=== PATIENT | male | born 1960 | race Caucasian/White ===

== ENCOUNTER 2023-10-28 08:13 | Day surgery (SDC) | payer MEDICARE, SELFPAY ==
[2023-10-12 08:21] VITALS: BMI 25.2
[2023-10-12 09:04] LABS: % Basophils 0.7 % (0-2); % Eosinophils 4.2 % (0-6); % Immature Granulocytes 0.4 % (0-0.5); % Lymphocytes 27.3 % (20.5-51.1); % Monocytes 7.4 % (1.7-9.3); Absolute Basophils 0.1 10^3/uL (0-0.2); Absolute Eosinophils 0.3 10^3/uL (0-0.7); Absolute Monocytes 0.5 10^3/uL (0.1-0.6); Absolute Neutrophils 4.4 10^3/uL (1.4-6.5); Hematocrit 38.6 % (39.0-52.0); Mean Corp Hgb Conc. 33.7 g/dL (33.0-37.0); Mean Corpuscular Hgb 31.3 pg (27.0-31.0); Mean Corpuscular Volume 92.8 fL (80.0-94.0); Mean Platelet Volume 10.3 fL (7.4-10.4); Nucleated Red Blood Cells % 0 % (-); Platelet Count 219 10^3/uL (130-400); Red Blood Cell Count 4.16 10^6/uL (4.70-6.10); Red Cell Dist. Width 13.1 % (11.5-14.5); White Blood Cell Count 7.3 10^3/uL (4.8-10.8)
[2023-10-12 09:11] LABS: INR 0.96; PT 12.6 Sec (11.4-14.6)
[2023-10-12 09:22] LABS: ALT (SGPT) 25 U/L (0-50); AST (SGOT) 23 U/L (17-59); Albumin 3.7 g/dl (3.5-5.0); Alkaline Phosphatase 73 U/L (38-126); Blood Urea Nitrogen 25 mg/dl (9-20); Calcium 9.5 mg/dl (8.4-10.2); Carbon Dioxide 28 mmol/L (22-30); Chloride 105 mmol/L (98-107); Estimated Creatinine Clearance 86 ml/min; Glucose 110 mg/dl (70-99); Magnesium 1.9 mg/dl (1.6-2.3); Potassium 4.7 mmol/L (3.5-5.1); Sodium 139 mmol/L (135-145); Total Bilirubin 0.3 mg/dl (0.2-1.3); Total Protein 6.1 g/dl (6.3-8.2); eGFR > 60.00
[2023-10-28] VITALS (18 sets, daily range): BP systolic 95–143; BP diastolic 47–83
[2023-10-28] MEDS: NSS 500 IV (09:05)
[2023-10-28 13:51] LABS: ACT-LR - POC 263 Seconds (116-155)
[2023-10-28 14:05] LABS: ACT-LR - POC 297 Seconds (116-155)
[2023-10-28 14:21] LABS: ACT-LR - POC 331 Seconds (116-155)
[2023-10-28 15:24] LABS: ACT-LR - POC 364 Seconds (116-155)
[2023-10-28 15:31] LABS: ACT-LR - POC > 397 Seconds (116-155)
[2023-10-28 15:53] LABS: ACT-LR - POC 152 Seconds (116-155)
[2023-10-28] MEDS: TYLENOL 650 MG PO (16:56)
--- NOTE | 2023-10-28 17:59 | PTCARENOTE ---
Received patient from shift lab technician. Dressing dry and intact left groin. Fem stop in place right groin, pressure at 20 and decreased to 10. HOB elevated after 2 hours of bedrest post hemostasis. Pedal pulses palpable bilaterally. Monitoring VS, SR on the
monitor. Oriented to room and plan of care, call rivers in reach.
--- NOTE | 2023-10-28 18:32 | ITS.CL.ABL ---
Grade School Teacher - Ablation
Ablation
Procedure Report:
Primary Readiness Paraprofessional: Willi Ni MD
Procedure Date: 10/28/2023
Patient History:
The patient is a pleasant 63-year-old male with a past medical history significant for CAD status post PCI, inferolateral NE, ischemic cardiomyopathy with a EF of 40%, hypertension, hyperlipidemia, history of tobacco, 23% PVC burden with 22 beat
NSVT on recent event monitor.
See H&P for complete history.
Indication:
Symptomatic PVCs
High PVC burden
Cardiomyopathy
Procedure
X PVC/VT Ablation procedure (46632) -- includes 3D mapping
X+LA/CS pacing (08150)
X+Intracardiac ultrasound (28197)
[ ]+Transseptal (66777)
[ ]+IV drug (98229)
[ ]+Other Arrhythmia (17337)
Method
NPO status confirmed. Grounding pad applied. Defibrillator pads applied. Continuous surface ECG, pulse oximetry, and blood pressure were monitored. Procedure was performed under MAC anesthesia, with anesthesia services.
Both groins were clipped, prepped with Chloraprep, and draped in sterile fashion. Time out was called. Local anesthesia administered. The left femoral veins were accessed for catheter placement, using ultrasound guidance, micro-puncture needle/wire,
and modified seldinger technique. 2 venous sheaths were placed. Arterial access was obtained using ultrasound guidance and a 5fr short sheath was placed (upsized to 9fr long braided sheath).
The following catheters were used:
X Tacticath SE (D/F-curve) ablation catheter
X Viewflex 9Fr ICE catheter
X Inquiry decapolar 6Fr diagnostic catheter
[ ] 6Fr quadrapolar diagnostic catheter
X HD Grid multielectrode mapping catheter
Heparin was given with arterial access. Heparin was given to achieve and maintain a target ACT of 300-400 seconds.
ICE and 3D mapping was performed to identify relevant cardiac structures. A careful 3D map was created to assess for regions of low-voltage and abnormal electrogram signals (late potentials, fractionation). See synopsis for details.
Catheter-based radiofrequency ablation was performed using a [employer] power generator. Target power was 30-50 Perez. See synopsis for details
At procedure conclusion, ICE was used to rule out pericardial effusion. Hemostasis was obtained with figure of 8 suture for venous groin site and manual pressure for the arterial site. Protamine was used for reversal.
Estimated Blood Loss
5-10 mL
Complications
None
Procedure Synopsis:
Following access as noted above, LV endocardium was mapped with HD grid catheter. PVC morphology RBRI transition at V6 with RSR V1 indicative of anterolateral papillary muscle origin. Using high-density mapping, PVC localized to the anterolateral
papillary muscle. HD grid was exchanged for ablation catheter and at site of earliest activation, EGM demonstrated a fractionated signal, -24 ms pre-QRS with a QS unipolar pattern. Incidental catheter ectopy at this location demonstrated at 94%
match by electroanatomic mapping. RF was delivered in this location using ICE guidance with careful monitoring of temperature, impedance. During ablation, sustained ventricular escape was noted and terminated with RF. After ablation, no clinical PVC
returned following waiting period. Given patient's LVEF 40%, cardiomyopathy, and NSVT on monitor, EPS was performed to induce VT by MUSTT trial indication. The decapolar catheter was placed along the RV septum for EPS/VT induction. Monomorphic VT at
TCL 240 ms with RBRI V4 transition likely arising near scar in LV successfully pace terminated at 220 ms RVP. Catheters were removed. No changes on post-ICE imaging compared to Pre-ICE imaging, no evidence of effusion. Protamine was used for
reversal. Sheaths were removed with ACT < 170. Figure of 8 closure for venous sheaths and manual pressure for arterial sheath site.
Fluoroscopy: 4.2 minutes; 8.93 mGy; DAP 1.03
RF Time: 5min 13s
Contrast used: 0 cc
Baseline Intervals:
Rhythm: SR, PVCs
AZ: 170 ms
QRS: 111 ms
QT: 408 ms
QTc: 475 ms
A-A: 737 ms
R-R: 737 ms
AVWB: 330 ms
AERP: 600/250 ms
Post-Procedure Intervals:
AZ: 170 ms
QRS: 117 ms
QT: 383 ms
QTc: 482 ms
A-A: 632 ms
R-R: 632 ms
Recommendations
1. Bedrest with straight-leg precautions as ordered
2. Admit for monitoring - tentative ICD implantation Sunday 10/29
3. Resume home medications as indicated
4. Ok to resume anticoagulation or antiplatelet medications tonight if patient and groin sites stable
5. Plan for follow-up in office in 4-6 weeks
Ankit Loco DO
Clinical Cardiac Sweet Pickled Fruit Maker
cc: Willi Ni MD
[2023-10-28] MEDS: COREG 6.25 MG PO (20:46)
[2023-10-28] MEDS: LIPITOR 10 MG PO (20:46)
[2023-10-28] MEDS: SEROQUEL 300 MG PO (21:14)
[2023-10-28] MEDS: NSS IV (22:34)
--- NOTE | 2023-10-28 23:58 | PTCARENOTE ---
Pt rec'd at change of shift awake,alert on CBR. Left femoral figure 8 sutures removed at 8pm. Pt oob at 8:30 pm tolerated well. B/L groin sites remain intact. Sinus with pac's noted on telemetry.
[2023-10-29 04:56] VITALS: BP 119/65
[2023-10-29 05:31] LABS: Hematocrit 33.5 % (39.0-52.0); Hemoglobin 11.9 g/dL (13.0-18.0); Mean Corp Hgb Conc. 35.5 g/dL (33.0-37.0); Mean Corpuscular Hgb 32.1 pg (27.0-31.0); Mean Corpuscular Volume 90.3 fL (80.0-94.0); Mean Platelet Volume 10.3 fL (7.4-10.4); Platelet Count 196 10^3/uL (130-400); Red Blood Cell Count 3.71 10^6/uL (4.70-6.10); Red Cell Dist. Width 13.1 % (11.5-14.5); White Blood Cell Count 10.8 10^3/uL (4.8-10.8)
[2023-10-29 05:56] LABS: Blood Urea Nitrogen 20 mg/dl (9-20); Calcium 8.6 mg/dl (8.4-10.2); Carbon Dioxide 24 mmol/L (22-30); Chloride 110 mmol/L (98-107); Estimated Creatinine Clearance 98 ml/min; Glucose 100 mg/dl (70-99); Magnesium 1.8 mg/dl (1.6-2.3); Sodium 140 mmol/L (135-145); eGFR > 60.00
[2023-10-29 08:06] VITALS: BP 115/54
--- NOTE | 2023-10-29 08:59 | W.PN.CARDCBS ---
Addendum entered and electronically signed by Lalo Huynh MD 10/29/23 14:27:
Patient seen and examined
Agree with TEST ENGINEER note and assessment
Agree with TEST ENGINEER plan
Exam:
Right groin clean dry intact
Cor regular
Telemetry overnight demonstrates no recurrence of the clinical PVC
2-3 sparse nonclinical and multifocal PVCs were noted overnight
ECG noted
Remainder of exam per TEST ENGINEER note
Impression:
Symptomatic PVC's
post PVC ablation 10/28/23
CAD/FL PCI LAD, RCA 2014
chronic HFrEF 40%
Ischemic cardiomyopathy
HTN
HLD
Anxiety/Depression
former tobacco
Plan:
post ablation groins stable
tele SR with occ PVC's
EP study had inducible monomorphic VT which was pace terminated
HF continue carvedilol, lisinopril, spironolactone
Activity restrictions reviewed
continue ASA daily
stable for d/c home today
Plan to return Fri for primary prevention ICD
Original Note:
Today's Communication / Plan
-
post PVC ablation
monomorphic VT seen on EPS
Plan to return Fri for ICD placement
Impression / Plan
-
PCP: Dean Lara MD
CDY: Willi Ni MD
63-year-old male with a past medical history significant for CAD status post PCI, inferolateral [place], ischemic cardiomyopathy with a EF of 40%, hypertension, hyperlipidemia, history of tobacco, 23% PVC burden with 22 beat NSVT on recent event monitor.
Impression:
Symptomatic PVC's
post PVC ablation 10/28/23
CAD/FL PCI LAD, RCA 2014
chronic HFrEF 40%
Ischemic cardiomyopathy
HTN
HLD
Anxiety/Depression
former tobacco
Plan:
post ablation groins stable
tele SR with occ PVC's
EP study had inducible monomorphic VT which was pace terminated
HF continue carvedilol, lisinopril, spironolactone
Activity restrictions reviewed
continue ASA daily
stable for d/c home today
Plan to return Fri for primary prevention ICD
Progress Note - File Drawer Finisher
Subjective
Date of Service: October 29, 2023
no cp, sob
Objective
Labs:
10/29/23 05:02
10/29/23 05:02
Labs
Hgb 11.9 g/dL (13.0-18.0) L 10/29/23 05:02
Hct 33.5 % (39.0-52.0) L 10/29/23 05:02
Plt Count 196 10^3/uL (130-400) 10/29/23 05:02
PT 12.6 Sec (11.4-14.6) 10/12/23 08:27
INR 0.96 10/12/23 08:27
Sodium 140 mmol/L (135-145) 10/29/23 05:02
Potassium 4.0 mmol/L (3.5-5.1) 10/29/23 05:02
BUN 20 mg/dl (9-20) 10/29/23 05:02
Creatinine 0.7 mg/dL (0.7-1.3) 10/29/23 05:02
Glucose 100 mg/dl (70-99) H 10/29/23 05:02
Vital Signs and I&O:
Vital Signs
Temp Pulse Resp BP Pulse Ox
98.8 F 52 20 119/65 98
10/29/23 08:03 10/29/23 05:15 10/29/23 08:03 10/29/23 04:56 10/29/23 08:03
Vital Signs
Temp Pulse Resp BP Pulse Ox
98.8 F 52 20 119/65 98
10/29/23 08:03 10/29/23 05:15 10/29/23 08:03 10/29/23 04:56 10/29/23 08:03
Intake & Output
10/27/23 10/28/23 10/29/23 10/30/23
06:59 06:59 06:59 06:59
Intake Total 2620 / 2620
Balance 2620 / 2620
Physical Exam
Physical Exam
NAD< AOX3
S1, S2, RRR
CTAB, non labored, no wheeze
SNTND BSx4
b/l groins c/d/i no HT, soft
--- NOTE | 2023-10-29 09:02 | CM ---
Reviewed chart. Met with Mr. Leos to review discharge plans. He states prior to admission he resides with his daughter in a two sto ry home with one step to enter. He states he has a full flight of steps to get to his bedroom. He states his
full bathroom is on the first floor. He states prior to admission he was independent with ambulation and adls. He states he does not have any DME in the home. He states he has a prescription plan and uses [facility]. The discharge plan is to
return home with his daughter when medically stable.
[2023-10-29] MEDS: ZESTRIL 2.5 MG PO (09:20)
[2023-10-29] MEDS: ASPIR LOW (ENTERIC COATED) 162 MG PO (09:20)
[2023-10-29] MEDS: COREG 6.25 MG PO (09:20)
[2023-10-29] MEDS: NSS IV (09:21)
[2023-10-29] MEDS: ALDACTONE 12.5 MG PO (09:21)
[2023-10-29] MEDS: CELEXA 20 MG PO (09:21)
--- NOTE | 2023-10-29 11:14 | PTCARENOTE ---
Pt seen by Kim Lopez NP. Telemetry and IV device removed. Discharge instructions reviewed with pt regarding medications and their possible side effects, activity and driving restrictions, wound care, reporting cares and concerns and follow up
appt's. Very good understanding verbalized. Pt escorted out via wheelchair and discharged to home.
--- NOTE | 2023-10-29 13:41 | W.DS.TRANS ---
DC Summary - Sole Assessor
-
Discharge Instructions:
Discharge Diagnosis/Procedures PVC post ablation
Diet Low Cholesterol
Driving Restrictions No driving for 24 hours
Instructions:
Stand-Alone Forms: DC Instructions- Cath/EP Lab
Changes to Home Medications: No
Discharge Medications:
DC Medications w/original date entered in [employer]
lisinopril 2.5 mg tablet 2.5 mg PO DAILY ##30 10/09/14
spironolactone 25 mg tablet 12.5 mg (1/2 x 25 mg) PO DAILY ##30 10/09/14
carvedilol 6.25 mg tablet 6.25 mg PO BID 04/04/16
citalopram 20 mg tablet 20 mg PO DAILY 04/04/16
aspirin 81 mg tablet,delayed release 162 mg PO DAILY 10/05/23
atorvastatin 10 mg tablet 10 mg PO HS 10/05/23
multivitamin 1 tab PO DAILY 10/05/23
quetiapine 300 mg tablet,extended release 24 hr 300 mg PO HS 10/05/23
Home Medication Changes
Pending Results: No
== END 2023-10-29 11:05 | disposition home or self-care (01) ==
LOC: CATH 08:13
PROVIDERS: Nurse Practitioner Adult Health; ATTENDING PHYSICIAN Internal Medicine Cardiovascular Disease; FAMILY PHYSICIAN Family Medicine; OTHER PHYSICIAN Internal Medicine Cardiovascular Disease
DX: I47.20 Ventricular tachycardia, unspecified (principal); I25.5 Ischemic cardiomyopathy; I25.10 Atherosclerotic heart disease of native coronary artery without angina pectoris; I25.2 Old myocardial infarction; E78.5 Hyperlipidemia, unspecified; Z87.891 Personal history of nicotine dependence; Z79.82 Long term (current) use of aspirin; I50.22 Chronic systolic (congestive) heart failure; I11.0 Hypertensive heart disease with heart failure; F32.A Depression, unspecified; F41.9 Anxiety disorder, unspecified
CPT/HCPCS: C1732; C1894; C1769; C2630; C1759; C1730; 36415; 76937; 80048; 80053; 83735; 85025; 85027; 85347; 85610; 86850; 86900; 86901; 93005; 93654; 93662

== ENCOUNTER 2023-11-04 10:46 | Day surgery (SDC) | payer MEDICARE, SELFPAY ==
[2023-11-04] VITALS (10 sets, daily range): BP systolic 126–172; BP diastolic 54–96; BMI 25.2
[2023-11-04] MEDS: VANCOCIN 200 IV (14:59)
--- NOTE | 2023-11-04 17:22 | ITS.CL.ICD ---
Garnett Mechanic - ICD
Implantable Cardioverter Defibrillator
Procedure Report:
Primary Outside Event Sales Specialist: Willi Ni MD
Procedure Date: 11/04/2023
Name of procedure:
1. Placement of a dual-chamber ICD
2. Subclavian venography
History:
1. Patient is a pleasant 63-year-old male with a past medical history significant for CAD with PCI, inferolateral [place], ischemic cardiomyopathy with EF 40%, hypertension, hyperlipidemia, history of tobacco use disorder, frequent PVCs with burden 23%,
nonsustained VT 22 beat run, sustained monomorphic ventricular tachycardia induced electrophysiology study (MUSTT) presenting for elective secondary prevention ICD. Given bradycardia and need for up titration of goal-directed medical therapy,
dual-chamber device chosen.
2. Please refer to H&P for complete history.
Indication:
Secondary prevention sudden cardiac
Bradycardia and need for uptitration of goal directed medical therapy for cardiomyopathy
Methods:
After informed consent was obtained, the patient was brought to the EP laboratory in a postabsorptive, nonsedated state. Peripheral IV access was established. Prophylactic antibiotics were administered prior to incision. Continuous ECG, blood
pressure, and pulse oximetry were initiated. Cardioversion patch electrodes were placed on the patient's chest and back. A grounding patch was applied to the skin. Sedation was administered by anesthesia.
In order to define the extrathoracic portion of the subclavian vein and exclude significant venous obstruction or anomalous anatomy, subclavian venography was performed prior to the procedure. Using the patient's left peripheral IV, contrast was
injected and images were recorded. The left subclavian vein and SVC were found to be widely patent.
The left chest was prepared and draped in a sterile fashion. A time-out was performed. Local anesthesia was injected in the subcutaneous tissue in the infraclavicular area. An incision was made medial to the deltopectoral groove. The subcutaneous
tissue was dissected the level of the prepectoral fascia. A subcutaneous pocket was created. Under fluoroscopic guidance and with the assistance of the images from the venogram, 2 separate venipunctures were made using micropuncture and modified
Seldinger technique. These were performed in the extrathoracic portion of the subclavian vein. Guidewires were passed and two peel-away sheaths were placed, and used to advance leads into the circulation.
Using fluoroscopic guidance, the leads were positioned. The RV lead was advanced to the RV/outflow tract. Ventricular ectopy was recorded. Images were taken in QUIROGA and DARSHAN views to ensure appropriate lead placement. The lead tip was subsequently
positioned on the apical septum. Adequate sensing and pacing parameters were found, and no diaphragmatic stimulation was seen with high-output pacing.
Next, the right atrial lead was positioned in the right atrial appendage. Adequate sensing and pacing parameters were found, and no diaphragmatic stimulation was seen with high-output pacing. Both sheaths were split, and the leads were secured to
the fascia with Ethibond ties.
The pocket was flushed with antibiotic solution and hemostasis was assured. The generator was connected to the leads and placed inside the pocket. The wound was closed with 3 running layers of absorbable suture, and steri-strips were applied.
Dressing applied over steri-strips in standard fashion.
Following the procedure, the patient was taken to the recovery area in stable condition. A chest x-ray was obtained in the holding area.
Lead parameters and device programming:
- RA Lead (Medtronic, Model 5076, #[id number]): Sensing 2.75 mV, Pacing threshold 1.2 V at 0.4 ms, Imp 700 Ohm
- RV Lead (Medtronic, Model 6935M, #[id number]): Sensing 5.0 mV, Pacing threshold 0.5 V at 0.4 ms, Imp 580 Ohm
- Device: Medtronic, Model [id number] ICD (#[id number]), programmed AAIR-DDDR, mode switch on, LRL 70, UTR 130; preference A pacing
- Zones: Monitor 150-188; VF >188 with iATP while charging and shocks; clinical TCL 220 ms from induced EPS
Conclusions:
1. Successful placement of a dual-chamber ICD
2. Subclavian venography
Recommendations:
- Admit
- Portable chest x-ray in recovery or room.
- OK to resume home medications as indicated
- Pressure dressing to be removed in AM, aquacell to remain until wound check
- Follow-up for incision check in the office in 7-10 days post-discharge
Ankit Loco,
Clinical Cardiac Deputy Register Of Deeds
cc: Willi Ni MD; Kody Lara MD
[2023-11-04] MEDS: TYLENOL 650 MG PO (17:49)
--- NOTE | 2023-11-04 17:53 | PTCARENOTE ---
Received the patient from the pharmaceutical laboratory technician in a stretcher. The patient is aaox3, vss, 100% A-paced on the monitor. Left chest wall pressure dressing is C/D/I. Left arm immobilizer in place. he complains of a 5/10 chronic BL shoulder pain. I medicated
him with Tylenol as ordered. Instructed the patient on his activity restrictions and expected oob time. His call rivers is within reach.
[2023-11-04] MEDS: COREG 6.25 MG PO (19:57)
[2023-11-04] MEDS: ROXICODONE 5 MG PO (20:41)
[2023-11-04] MEDS: LIPITOR 10 MG PO (20:41)
--- NOTE | 2023-11-04 20:53 | PTCARENOTE ---
patient complaints of 5 out 10 left shoulder pain, no relief with Tylenol. Oxycodone ordered and given. Left chest wall dressing dry with pressure dressing, supported left elbow on a pillow in chair. VSS, A-paced on telemetry, call rivers in reach
[2023-11-04] MEDS: SEROQUEL 300 MG PO (22:32)
[2023-11-05] MEDS: ROXICODONE 10 MG PO (00:34)
[2023-11-05 03:21] VITALS: BP 127/76
[2023-11-05 03:40] VITALS: BMI 24.4
[2023-11-05 03:52] LABS: Hematocrit 36.4 % (39.0-52.0); Hemoglobin 12.2 g/dL (13.0-18.0); Mean Corp Hgb Conc. 33.5 g/dL (33.0-37.0); Mean Corpuscular Hgb 31.3 pg (27.0-31.0); Mean Corpuscular Volume 93.3 fL (80.0-94.0); Platelet Count 201 10^3/uL (130-400); Red Cell Dist. Width 12.9 % (11.5-14.5); White Blood Cell Count 10.4 10^3/uL (4.8-10.8)
[2023-11-05 04:24] LABS: Blood Urea Nitrogen 17 mg/dl (9-20); Calcium 8.9 mg/dl (8.4-10.2); Carbon Dioxide 25 mmol/L (22-30); Chloride 109 mmol/L (98-107); Estimated Creatinine Clearance 98 ml/min; Glucose 100 mg/dl (70-99); Magnesium 1.9 mg/dl (1.6-2.3); Sodium 141 mmol/L (135-145); eGFR > 60.00
[2023-11-05 07:47] VITALS: BP 128/80
[2023-11-05] MEDS: ALDACTONE 12.5 MG PO (07:47)
[2023-11-05] MEDS: ASPIR LOW (ENTERIC COATED) 162 MG PO (07:48)
[2023-11-05] MEDS: CELEXA 20 MG PO (07:48)
[2023-11-05] MEDS: ZESTRIL 2.5 MG PO (07:49)
[2023-11-05] MEDS: COREG 6.25 MG PO (07:49)
--- NOTE | 2023-11-05 08:58 | CM ---
Reviewed chart. Met with Mr. Leos to review discharge plans. He states prior to admission he resides with his daughter in a two story home without any steps to enter. He states he has a full flight of steps to get to bedroom. He states his full
bathroom is on the first floor. He states prior to admission he was independent with ambulation and adls. He states he does not have any DME in the home. He states he has a prescription plan and uses [facility]. The discharge plan is to
return home with her daughter when medically stable.
--- NOTE | 2023-11-05 09:01 | W.PN.CARDCBS ---
Addendum entered and electronically signed by Lalo Huynh MD 11/05/23 10:50:
Patient seen and examined
Agree with MANUFACTURING OPERATIONS MANAGER note and assessment
Agree with MANUFACTURING OPERATIONS MANAGER plan
Examination:
Left-sided device site clean dry and intact
Cor regular
Chest x-ray reviewed demonstrating no pneumothorax and stable lead parameters and position
Telemetry with appropriate atrial sensing and pacing and ventricular sensing and pacing
Rare PVCs noted on telemetry
Remainder of exam per MANUFACTURING OPERATIONS MANAGER note
63-year-old male with a past medical history significant for CAD status post PCI, inferolateral ND, ischemic cardiomyopathy with a EF of 40%, hypertension, hyperlipidemia, history of tobacco, 23% PVC burden with 22 beat NSVT on recent event monitor.
Impression:
NSVT
Symptomatic PVC's post ablation 10/28/23
post DC ICD 11/04/23
CAD/ND PCI LAD, RCA 2014
chronic HFrEF 40%
Ischemic cardiomyopathy
HTN
HLD
Anxiety/Depression
former tobacco
Plan:
Post device, site stable
tele Apaced
CXR no PTX
HF continue carvedilol, lisinopril, spironolactone
Activity restrictions reviewed
continue ASA daily
inc check 1 week DCA
stable for d/c home today
Original Note:
Today's Communication / Plan
-
post DC ICD
stable for d/c home
Impression / Plan
-
PCP: Dean Lara MD
CDY: Willi Ni MD
63-year-old male with a past medical history significant for CAD status post PCI, inferolateral ND, ischemic cardiomyopathy with a EF of 40%, hypertension, hyperlipidemia, history of tobacco, 23% PVC burden with 22 beat NSVT on recent event monitor.
Impression:
NSVT
Symptomatic PVC's post ablation 10/28/23
post DC ICD 11/04/23
CAD/ND PCI LAD, RCA 2014
chronic HFrEF 40%
Ischemic cardiomyopathy
HTN
HLD
Anxiety/Depression
former tobacco
Plan:
Post device, site stable
tele Apaced
CXR no PTX
HF continue carvedilol, lisinopril, spironolactone
Activity restrictions reviewed
continue ASA daily
inc check 1 week DCA
stable for d/c home today
Progress Note - Regional Operations Manager
Subjective
Date of Service: November 05, 2023
no cp, sob
Objective
Labs:
11/05/23 03:31
11/05/23 03:31
Labs
Hgb 12.2 g/dL (13.0-18.0) L 11/05/23 03:31
Hct 36.4 % (39.0-52.0) L 11/05/23 03:31
Plt Count 201 10^3/uL (130-400) 11/05/23 03:31
Sodium 141 mmol/L (135-145) 11/05/23 03:31
Potassium 4.0 mmol/L (3.5-5.1) 11/05/23 03:31
BUN 17 mg/dl (9-20) 11/05/23 03:31
Creatinine 0.7 mg/dL (0.7-1.3) 11/05/23 03:31
Glucose 100 mg/dl (70-99) H 11/05/23 03:31
Vital Signs and I&O:
Vital Signs
Temp Pulse Resp BP Pulse Ox
97.7 F 88 20 127/76 97
11/05/23 07:45 11/05/23 05:45 11/05/23 07:45 11/05/23 03:21 11/05/23 07:45
Vital Signs
Temp Pulse Resp BP Pulse Ox
97.7 F 88 20 127/76 97
11/05/23 07:45 11/05/23 05:45 11/05/23 07:45 11/05/23 03:21 11/05/23 07:45
Intake & Output
11/03/23 11/04/23 11/05/23 11/06/23
06:59 06:59 06:59 06:59
Intake Total 615 / 615
Output Total 250 / 250
Balance 365 / 365
Physical Exam
Physical Exam
NAD, AOX3
S1, S2, RRR
CTAB, non labored
SNTND bsx4
L CW Aquacel dressing c/d/i, pressure dressing removed
--- NOTE | 2023-11-05 11:42 | PTCARENOTE ---
Pt with no c/o of any pain this am. OOB ad molly in the room, gait steady. Left arm immobilizer removed prior to discharge. Aqucell dressing to left chest dry and intact with no hematoma noted. Pt discharged to home with his daughter. Discharge
instructions given and reviewed with complete understanding.
--- NOTE | 2023-11-05 13:47 | W.DS.TRANS ---
DC Summary - Campaign Manager
-
Discharge Instructions:
Discharge Diagnosis/Procedures ICD implant
Diet Low Cholesterol,Low Sodium
Driving Restrictions No driving for 1 week
Bathing Restrictions OK to Shower
Instructions:
Stand-Alone Forms: DC Inst - Implanted Device
Changes to Home Medications: No
Discharge Medications:
DC Medications w/original date entered in [employer]
lisinopril 2.5 mg tablet 2.5 mg PO DAILY ##30 10/09/14
spironolactone 25 mg tablet 12.5 mg (1/2 x 25 mg) PO DAILY ##30 10/09/14
carvedilol 6.25 mg tablet 6.25 mg PO BID 04/04/16
citalopram 20 mg tablet 20 mg PO DAILY 04/04/16
aspirin 81 mg tablet,delayed release 162 mg PO DAILY 10/05/23
atorvastatin 10 mg tablet 10 mg PO HS 10/05/23
multivitamin 1 tab PO DAILY 10/05/23
quetiapine 300 mg tablet (Seroquel) 300 mg PO HS 11/04/23
Home Medication Changes
Pending Results: No
== END 2023-11-05 11:37 | disposition home or self-care (01) ==
LOC: CATH 10:46
PROVIDERS: Nurse Practitioner Adult Health; ATTENDING PHYSICIAN Internal Medicine Cardiovascular Disease; FAMILY PHYSICIAN Family Medicine
DX: I47.20 Ventricular tachycardia, unspecified (principal); I49.3 Ventricular premature depolarization; I11.0 Hypertensive heart disease with heart failure; I50.32 Chronic diastolic (congestive) heart failure; I25.5 Ischemic cardiomyopathy; Z87.891 Personal history of nicotine dependence; F41.9 Anxiety disorder, unspecified; F32.A Depression, unspecified; Z79.82 Long term (current) use of aspirin; I25.2 Old myocardial infarction; I10 Essential (primary) hypertension; E78.5 Hyperlipidemia, unspecified
CPT/HCPCS: 33249; 71045; 80048; 83735; 85027; 93005; C1721; C1777; C1892; C1898; Q9967